=== PATIENT | female | born 1965 | race Two or more races ===

== ENCOUNTER 2018-03-02 02:27 | Emergency (ER) | payer OTHER ==
[~2018-03-02] VITALS: Ht 170.2 cm; Wt 60.8 kg
[2018-03-02] MEDS ORDERED: DiphenhydrAMINE 50mg/ml Inj IVP ONE ×2 (02:30→03:30)
[2018-03-02] MEDS ORDERED: Dicyclomine HCl 10mg/5ml oral soln ORAL ONE ×2 (02:30→03:30)
[2018-03-02] MEDS ORDERED: Lidocaine 2% Visc 15ml soln ORAL ONE ×2 (02:30→03:30)
[2018-03-02] MEDS ORDERED: Mylanta II UD 30ml ORAL ONE ×2 (02:30→03:30)
[2018-03-02] MEDS ORDERED: Metoclopramide 10mg/2ml Inj IVP ONE ×2 (02:30→03:30)
[2018-03-02 02:47] LABS: EOSINOPHILS % (AUTO) 1.1 % (0.0-3.0); HEMATOCRIT 45.1 % (37.0-47.0); HEMOGLOBIN 14.8 G/DL (12.0-16.0); LYMPHOCYTES % (AUTO) 35.2 % (20.0-45.0); MEAN CORPUSCULAR VOLUME 87 FL (80-99); MONOCYTES % (AUTO) 5.8 % (1.0-10.0); PLATELET COUNT 237 K/UL (150-450); WHITE BLOOD COUNT 9.3 K/UL (4.8-10.8)
[2018-03-02 02:57] LABS: ANION GAP 7 mmol/L (5-15); BLOOD UREA NITROGEN 13 mg/dL (7-18); CARBON DIOXIDE 30 MMOL/L (21-32); CHLORIDE 103 MMOL/L (98-107); CREATININE 0.8 MG/DL (0.55-1.30); POTASSIUM 3.8 MMOL/L (3.5-5.1); SODIUM 140 MMOL/L (136-145)
[2018-03-02 03:01] LABS: ALANINE AMINOTRANSFERASE 25 U/L (12-78); ALBUMIN 3.9 G/DL (3.4-5.0); ALBUMIN/GLOBULIN RATIO 1.1 (1.0-2.7); ALKALINE PHOSPHATASE 82 U/L (46-116); ASPARTATE AMINO TRANSFERASE 23 U/L (15-37); BILIRUBIN,TOTAL 0.3 MG/DL (0.2-1.0)
[2018-03-02] MEDS ORDERED: LORazepam Inj 2mg/ml 1ml IV ONE (03:30)
--- NOTE | 2018-03-02 04:11 | Emergency Room Report ---
History of Present Illness General Chief Complaint: Headache Source: Patient, EMS Present Illness HPI 53-year-old female presents ED for evaluation. Brought in by EMS complaining of headache and abdominal pain. Started last night after she took Celexa for the first time. Upon arrival patient states she is feeling warm then tingling all over her body. Son at bedside states patient does have psychiatric history and history of anxiety. Denies nausea or vomiting. Denies chest pain or shortness of breath. Pain is throbbing, 7 out of 10, nonradiating. No other aggravating relieving factors. Denies any other associated symptoms Allergies: Coded Allergies: No Known Allergies (Unverified , 03/02/18) Patient History Past Medical History: psych hx Past Surgical History: none Pertinent Family History: none Social History: Denies: smoking, alcohol use, drug use Last Menstrual Period: none Now: No Immunizations: UTD Reviewed Nursing Documentation: PMH: Agreed; PSxH: Agreed Nursing Documentation-PMH History Of Psychiatric Problem: Yes - Depression, Vertigo Review of Systems All Other Systems: negative except mentioned in HPI Physical Exam Vital Signs Date Time Temp Pulse Resp B/P (MAP) Pulse Ox O2 Delivery O2 Flow Rate FiO2 03/02/18 02:03 97.9 70 18 130/76 98 Room Air 97.9 Sp02 EP Interpretation: reviewed, normal General Appearance: no apparent distress, alert, GCS 15, non-toxic Head: normocephalic, atraumatic Eyes: bilateral eye normal inspection, bilateral eye PERRL ENT: hearing grossly normal, normal pharynx, no angioedema, normal voice Neck: full range of motion, supple, supple/symm/no masses Respiratory: chest non-tender, lungs clear, normal breath sounds, speaking full sentences Cardiovascular #1: regular rate, rhythm, no edema Cardiovascular #2: 2+ carotid (R), 2+ carotid (L), 2+ radial (R), 2+ radial (L) , 2+ dorsalis pedis (R), 2+ dorsalis pedis (L) Gastrointestinal: normal bowel sounds, non tender, soft, non-distended, no guarding, no rebound Rectal: deferred Genitourinary: normal inspection, no CVA tenderness Musculoskeletal: back normal, gait/station normal, normal range of motion, non- tender Neurologic: alert, oriented x3, responsive, motor strength/tone normal, sensory intact, speech normal Psychiatric: judgement/insight normal, memory normal, no suicidal/homicidal ideation, no delusions, anxious Reflexes: 3+ bicep (R), 3+ bicep (L), 3+ tricep (R), 3+ tricep (L), 3+ knee (R) , 3+ knee (L) Skin: normal color, no rash, warm/dry, well hydrated Lymphatic: no adenopathy Medical Decision Making Diagnostic Impression: Primary Impression: Headache Qualified Codes: R51 - Headache Additional Impressions: Adverse reaction to antidepressant drug Qualified Codes: T43.205A - Adverse effect of unspecified antidepressants, initial encounter Anxiety ER Course Hospital Course 53-year-old female presents with headache, abdominal pain, hot flashes after taking Celexa for the first time Differential diagnoses include: migraine, gastritis, anxiety Clinical course Patient placed on stretcher. on monitoring analyst. After initial history and physical I ordered labs, IVFs, meds, ativan labs reviewed- no leukocytosis, hemoglobin/hematocrit stable, troponins negative , electrolytes okay Discussed findings with patient, son at bedside. Son states patient does have history of anxiety. On reassessment patient allowed to rest and is now feeling better. Asking to be discharged. I explained that this could be likely an adverse reaction to the new medication and should discontinue until she sees her PMD Upon reassessment patient is observed feeling better. Interacting appropriately with family, laughing, using her cell phone. Patient states she feels better wishes to go home. Clinical findings consistent with anxiety reaction. Patient and family agree. I. I feel this is a highly complex case requiring extensive working including EKG/Rhythm strip, Xray/CT/US, Blood/urine lab work, repeat exams while in ED, and administration of strong opiates/narcotics for pain control, admission to hospital or close patient follow up. Diagnosis - anxiety, adverse reaction to antidepressant medication, headache Stable and discharged to home. Followup with PMD. Return to ED if symptoms recur or worse Labs Test 03/02/18 02:35 White Blood Count 9.3 K/UL (4.8-10.8) Red Blood Count 5.20 M/UL (4.20-5.40) Hemoglobin 14.8 G/DL (12.0-16.0) Hematocrit 45.1 % (37.0-47.0) Mean Corpuscular Volume 87 FL (80-99) Mean Corpuscular Hemoglobin 28.4 PG (27.0-31.0) Mean Corpuscular Hemoglobin Concent 32.8 G/DL (32.0-36.0) Red Cell Distribution Width 11.0 % (11.6-14.8) Platelet Count 237 K/UL (150-450) Mean Platelet Volume 7.9 FL (6.5-10.1) Neutrophils (%) (Auto) 57.0 % (45.0-75.0) Lymphocytes (%) (Auto) 35.2 % (20.0-45.0) Monocytes (%) (Auto) 5.8 % (1.0-10.0) Eosinophils (%) (Auto) 1.1 % (0.0-3.0) Basophils (%) (Auto) 1.0 % (0.0-2.0) Sodium Level 140 MMOL/L (136-145) Potassium Level 3.8 MMOL/L (3.5-5.1) Chloride Level 103 MMOL/L (98-107) Carbon Dioxide Level 30 MMOL/L (21-32) Anion Gap 7 mmol/L (5-15) Blood Urea Nitrogen 13 mg/dL (7-18) Creatinine 0.8 MG/DL (0.55-1.30) Estimat Glomerular Filtration Rate > 60 mL/min (>60) Glucose Level 125 MG/DL (74-106) Calcium Level 9.0 MG/DL (8.5-10.1) Total Bilirubin 0.3 MG/DL (0.2-1.0) Aspartate Amino Transf (AST/SGOT) 23 U/L (15-37) Alanine Aminotransferase (ALT/SGPT) 25 U/L (12-78) Alkaline Phosphatase 82 U/L (46-116) Total Protein 7.5 G/DL (6.4-8.2) Albumin 3.9 G/DL (3.4-5.0) Globulin 3.6 g/dL Albumin/Globulin Ratio 1.1 (1.0-2.7) Lipase 305 U/L (73-393) Last Vital Signs Date Time Temp Pulse Resp B/P (MAP) Pulse Ox O2 Delivery O2 Flow Rate FiO2 03/02/18 02:03 97.9 70 18 130/76 98 Room Air 97.9 Status: improved Disposition: HOME, SELF-CARE Condition: Stable Referrals: [facility],REFERRING (PCP) Babak Dang MD Mar 02, 2018 04:11
[2018-03-02 05:44] VITALS: BP 130/76
== END 2018-03-02 05:46 | disposition home or self-care (01) ==
LOC: EDBD 02:27 → EMR 02:30
DX: R51 Headache (principal); T43.225A Adverse effect of selective serotonin reuptake inhibitors, initial encounter; Y92.9 Unspecified place or not applicable; F32.9 Major depressive disorder, single episode, unspecified
CPT/HCPCS: 36415; 80053; 83690; 85025; 96361; 96374; 96375; 96376; 99285; J1200; J2765; S0028

== ENCOUNTER 2019-10-07 17:43 | Emergency (ER) | payer OTHER ==
[~2019-10-07] VITALS: Ht 162.6 cm; Wt 748.4 kg
[2019-10-07 18:12] VITALS: BP 120/80
--- NOTE | 2019-10-07 18:12 | NUR ---
ED Nurse Note: s/p fall today afternoon now unable to move right leg . pain on left hip and pelvis. . per patient she [place] in the [place]
--- NOTE | 2019-10-07 18:18 | Emergency Room Report ---
History of Present Illness General Chief Complaint: Multiple Trauma/Fall Source: Patient Present Illness HPI 54-year-old female with no past medical history presents with right hip and lower back pain status post mechanical fall earlier today at 1400. She reports that she slipped on spilled soap at [employer] and fell onto her right side. Denies any head injury, LOC, or vomiting. She is able to ambulate but with pain. She currently rates her pain 6 out of 10 at rest and 9 out of 10 with walking. Patient did not take anything for pain. Allergies: Coded Allergies: CODEINE (Verified Allergy, Unknown, 10/07/19) Patient History Past Medical History: see triage record Now: No Reviewed Nursing Documentation: PMH: Agreed; PSxH: Agreed Nursing Documentation-PMH Past Medical History: No Stated History Review of Systems All Other Systems: negative except mentioned in HPI Physical Exam Vital Signs Date Time Temp Pulse Resp B/P (MAP) Pulse Ox O2 Delivery O2 Flow Rate FiO2 10/07/19 18:01 98.1 72 16 120/80 (93) 98 Room Air Sp02 EP Interpretation: reviewed, normal General Appearance: normal inspection, well appearing, no apparent distress Neck: normal inspection, full range of motion, supple, no bony tend Respiratory: chest non-tender, lungs clear Cardiovascular #1: regular rate, rhythm Cardiovascular #2: 2+ dorsalis pedis (R), 2+ dorsalis pedis (L) Gastrointestinal: normal inspection, non tender Musculoskeletal: normal inspection, normal range of motion, pelvis stable, other - Tenderness to the right hip and right lumbar paraspinal area. No ecchymosis. No obvious deformities. Neurologic: motor strength/tone normal, photographic spotter III-XII nml as tested Medical Decision Making PA Attestation Dr. Reddy is my supervising physician whom patient management and care has been discussed with. Diagnostic Impression: Primary Impression: Hip pain Qualified Codes: M25.551 - Pain in right hip Additional Impressions: Back pain Qualified Codes: M54.5 - Low back pain Fall Qualified Codes: W19.XXXA - Unspecified fall, initial encounter ER Course Pt. presents to the ED c/o right hip and low back pain status post mechanical fall Ddx considered but are not limited to fracture, dislocation, contusion, sprain Vital signs: are WNL, pt. is afebrile H&PE are most consistent with muscle strain, hip contusion ORDERS: Hip/pelvis x-ray and lumbar spine x-ray show no evidence of fracture or dislocation. ED INTERVENTIONS: Patient given ibuprofen and Robaxin for pain. DISCHARGE: At this time pt. is stable for d/c to home. Will provide printed patient care instructions, and any necessary prescriptions. Advised to follow up outpatient in 1-2 days. Care plan and follow up instructions have been discussed with the patient prior to discharge. Other X-Ray Diagnostic Results Other X-Ray Diagnostic Results : X-Ray ordered: Hip/pelvis, lumbar spine # of Views/Limited Vs Complete: 3 View Indication: Pain EP Interpretation: Yes PA Xray: Interpretation reviewed, by supervising MD, and agrees with findings. Interpretation: no dislocation, no soft tissue swelling, no fractures Impression: No acute disease Last Vital Signs Date Time Temp Pulse Resp B/P (MAP) Pulse Ox O2 Delivery O2 Flow Rate FiO2 10/07/19 18:12 72 16 Room Air 10/07/19 18:12 98.1 120/80 98 Disposition: HOME, SELF-CARE Condition: Stable Scripts Cyclobenzaprine Hcl* (FLEXERIL*) 10 Mg Tablet 10 MG ORAL QHS, #10 TAB Prov: Carlee Pritchard N. P.A. 10/07/19 Ibuprofen* (MOTRIN*) 600 Mg Tablet 600 MG ORAL Q6H PRN for For Pain, #30 TAB Prov: Carlee Pritchard N. P.A. 10/07/19 Carlee Pritchard N. P.A. Oct 07, 2019 18:18
--- NOTE | 2019-10-07 18:19 | NUR ---
ED Nurse Note: Pt taken to xray
[2019-10-07] MEDS: HYDROcodone/Acetamin 5/325 tab ORAL ONE ×2 (18:48→18:56)
--- NOTE | 2019-10-07 18:52 | NUR ---
ED Nurse Note: pt states shes allergic to codeine. updated pt allergy list. wasted medication appropriately
[2019-10-07] MEDS ORDERED: IBUPROFEN600 MG ORAL (19:14)
[2019-10-07] MEDS ORDERED: CYCLOBENZAPRINE10 MG ORAL (19:14)
[2019-10-07] MEDS ORDERED: Methocarbamol 750mg tab ORAL ONE (19:15)
[2019-10-07 19:20] VITALS: BP 121/79
--- NOTE | 2019-10-07 19:21 | NUR ---
ER DISCHARGE NOTE: Patient is cleared to be discharged per ERMD, pt is aox4, on room air, with stable vital signs. pt was given dc and prescription instructions, pt was able to verbalize understanding, pt id bandremoved. pt is able to ambulate with steady gait. pt took all belongings.
--- NOTE | 2019-10-08 11:02 | Diagnostic Imaging Report ---
Indication: Trauma, back pain Technique: 3 views of the lumbar spine Comparison: None Findings: Bony alignment is normal. Vertebral body heights are preserved. Disc spaces are preserved. Pedicles are intact. Sacral arches are preserved. Sacral iliac joint spaces are preserved. There is considerable stool within the colon. Impression: No acute process
--- NOTE | 2019-10-08 11:03 | Diagnostic Imaging Report ---
Indication: Trauma, pain Technique: 2 views of the right hip, one view of the pelvis Comparison: none Findings: No acute fractures. No dislocations. The joint spaces are preserved Impression: Negative
== END 2019-10-07 19:20 | disposition home or self-care (01) ==
LOC: EMR 18:35
DX: M25.551 Pain in right hip (principal); M54.5 Low back pain; Z88.6 Allergy status to analgesic agent; W01.0XXA Fall on same level from slipping, tripping and stumbling without subsequent striking against object, initial encounter; Y92.9 Unspecified place or not applicable
CPT/HCPCS: 72020; 73501; Z7502; 99284

== ENCOUNTER 2020-06-22 17:47 | Emergency (ER) | payer OTHER ==
[~2020-06-22] VITALS: Ht 167.6 cm; Wt 64.4 kg
[~2020-06-22 17:47] MED LIST: CYCLOBENZAPRINE10 MG ORAL; IBUPROFEN600 MG ORAL
--- NOTE | 2020-06-22 18:13 | Emergency Room Report ---
History of Present Illness General Chief Complaint: Dizziness Source: Patient Present Illness HPI Patient is a 55-year-old female presents for increased generalized body pain and right-sided weakness. Onset of weakness was approximately 5 hours prior to being seen. Patient had been feeling generalized body aches for several days. Had not been having any fever. Reports having multiple episodes of spinning sensation. Increased generalized weakness and lethargy. Allergies: Coded Allergies: CODEINE (Verified Allergy, Unknown, 10/07/19) COVID-19 Screening Contact w/high risk pt: No Experienced COVID-19 symptoms?: Yes COVID-19 Testing performed HEALTH INSPECTOR: No Patient History Past Medical History: see triage record Now: No Reviewed Nursing Documentation: PMH: Agreed; PSxH: Agreed Nursing Documentation-PMH Past Medical History: No History, Except For Review of Systems All Other Systems: negative except mentioned in HPI Physical Exam Vital Signs Date Time Temp Pulse Resp B/P (MAP) Pulse Ox O2 Delivery O2 Flow Rate FiO2 06/22/20 17:58 99.0 68 16 115/69 (84) 95 Room Air Sp02 EP Interpretation: reviewed, normal General Appearance: normal inspection, alert, GCS 15, moderate distress Head: atraumatic ENT: normal ENT inspection, hearing grossly normal, normal voice Neck: normal inspection, full range of motion, supple, no bony tend Respiratory: normal inspection, lungs clear, normal breath sounds, no respiratory distress, no retraction, no wheezing Cardiovascular #1: regular rate, rhythm, no edema Gastrointestinal: normal inspection, normal bowel sounds, non tender, soft, no guarding, no hernia Genitourinary: no CVA tenderness Musculoskeletal: normal inspection, back normal, normal range of motion Neurologic: alert, oriented x3, motor weakness, responsive, speech normal, normal inspection Psychiatric: normal inspection, judgement/insight normal, mood/affect normal Skin: no rash Medical Decision Making Diagnostic Impression: Primary Impression: Transient ischemic attack ER Course Patient presented for increased dizziness. Differential diagnosis CVA, arthritis, radiculopathy, among others. Because of complexity of patient's case laboratory tests and imaging studies were ordered. CT was performed emergently because patient's reported weakness and dizziness. CT read by radiology showed no evidence of acute CVA. Laboratory testing was unremarkable. Patient was given IV fluids as well as medications for pain. She is given aspirin. Patient was noted to have complete resolution of all weakness and did not have any facial drooping with normal neurologic exam. Patient was offered admission and stated she did not want to stay in the hospital. She states she felt better after meclizine. She was given prescription for aspirin and meclizine. She was advised to recheck with her doctor tomorrow. She is advised to return if worse. This medical record is generated with [employer] manager of manufacturing software. There may be some manager of manufacturing discrepancies related to use of this software Labs Test 06/22/20 18:30 06/22/20 18:54 White Blood Count 8.8 K/UL (4.8-10.8) Red Blood Count 4.96 M/UL (4.20-5.40) Hemoglobin 14.8 G/DL (12.0-16.0) Hematocrit 44.9 % (37.0-47.0) Mean Corpuscular Volume 90 FL (80-99) Mean Corpuscular Hemoglobin 29.8 PG (27.0-31.0) Mean Corpuscular Hemoglobin Concent 33.0 G/DL (32.0-36.0) Red Cell Distribution Width 12.3 % (11.6-14.8) Platelet Count 270 K/UL (150-450) Mean Platelet Volume 7.6 FL (6.5-10.1) Neutrophils (%) (Auto) 58.0 % (45.0-75.0) Lymphocytes (%) (Auto) 30.2 % (20.0-45.0) Monocytes (%) (Auto) 7.3 % (1.0-10.0) Eosinophils (%) (Auto) 3.1 % (0.0-3.0) Basophils (%) (Auto) 1.4 % (0.0-2.0) Prothrombin Time 10.1 SEC (9.30-11.50) Prothromb Time International Ratio 0.9 (0.9-1.1) Activated Partial Thromboplast Time 26 SEC (23-33) Sodium Level 137 MMOL/L (136-145) Potassium Level 4.1 MMOL/L (3.5-5.1) Chloride Level 100 MMOL/L (98-107) Carbon Dioxide Level 32 MMOL/L (21-32) Anion Gap 5 mmol/L (5-15) Blood Urea Nitrogen 21 mg/dL (7-18) Creatinine 0.9 MG/DL (0.55-1.30) Estimat Glomerular Filtration Rate > 60 mL/min (>60) Glucose Level 100 MG/DL (74-106) Calcium Level 9.4 MG/DL (8.5-10.1) Total Bilirubin 0.2 MG/DL (0.2-1.0) Aspartate Amino Transf (AST/SGOT) 26 U/L (15-37) Alanine Aminotransferase (ALT/SGPT) 24 U/L (12-78) Alkaline Phosphatase 75 U/L (46-116) Troponin I 0.000 ng/mL (0.000-0.056) Total Protein 8.1 G/DL (6.4-8.2) Albumin 3.9 G/DL (3.4-5.0) Globulin 4.2 g/dL Albumin/Globulin Ratio 0.9 (1.0-2.7) Triglycerides Level 151 MG/DL (30-150) Cholesterol Level 218 MG/DL (< 200) LDL Cholesterol 123 mg/dL (<100) HDL Cholesterol 55 MG/DL (40-60) Cholesterol/HDL Ratio 4.0 (3.3-4.4) Lipase 205 U/L (73-393) POC Whole Blood Glucose 94 MG/DL (74-106) Last Vital Signs Date Time Temp Pulse Resp B/P (MAP) Pulse Ox O2 Delivery O2 Flow Rate FiO2 06/22/20 17:58 99.0 68 16 115/69 (84) 95 Room Air Status: improved Disposition: HOME, SELF-CARE Condition: Improved Scripts Aspirin* (ASPIRIN*) 325 Mg Tablet 325 MG ORAL DAILY for Antiplatelet, #30 TAB Prov: Alex May MD 06/22/20 Meclizine Hcl* (MECLIZINE*) 25 Mg Tablet 25 MG ORAL THREE TIMES A DAY, #30 TAB Prov: Alex May MD 06/22/20 Alex May MD Jun 22, 2020 18:13
--- NOTE | 2020-06-22 18:35 | NUR ---
ED Nurse Note: Pt came back from CT, placed on bed 8. hooked to cardiac cath technologist.
--- NOTE | 2020-06-22 18:37 | NUR ---
ED Nurse Note: Pt wheeled in to ED from home d/t dizziness, unable to ambulate for a week, weakness and pain on L shoulder. Pt is AOx4, calm and cooperative to care. Per pt, weakness started today around 1400 and she passed out; verbalized hx of TIAs as well. Pt was on bed, hooked to artillery specialist, breathing even and unlabored, afebrile on triage. (-) facial drooping nor slurred speech. will continue to monitor. Addendum: 06/22/20 at 1908 by NORMA ED Nurse Note: Pt wheeled in to ED from home d/t dizziness, unable to ambulate for a week, weakness and pain on R shoulder. Pt is AOx4, calm and cooperative to care. Per pt, weakness started today around 1400 and she passed out; verbalized hx of TIAs as well. Pt was on bed, hooked to artillery specialist, breathing even and unlabored, afebrile on triage. (-) facial drooping nor slurred speech. will continue to monitor.
--- NOTE | 2020-06-22 18:39 | Diagnostic Imaging Report ---
History: CVA Exam: CT HEAD Without Contrast Technique more: CTDI is 53.4 mGy and DLP is 992.1 mGy-cm. Technique more: One or more of the following dose reduction techniques were used: automated exposure control, adjustment of the mA and/or kV according to patient size, use of iterative reconstruction technique. Comparison: None available FINDINGS: No intracranial hemorrhage, mass effect or CT evidence of acute infarct. Ventricles are within limits and midline. Visualized paranasal sinuses, mastoids and orbits appear within limits. IMPRESSION: No intracranial hemorrhage, mass effect or CT evidence of acute infarct. May further evaluate with nonemergent MRI as warranted.
[2020-06-22 18:45] VITALS: BP 115/69
[2020-06-22] MEDS ORDERED: Ketorolac 30mg Inj IV ONE (18:45)
[2020-06-22 18:55] LABS: BASOPHILS % (AUTO) 1.4 % (0.0-2.0); EOSINOPHILS % (AUTO) 3.1 % (0.0-3.0); HEMATOCRIT 44.9 % (37.0-47.0); HEMOGLOBIN 14.8 G/DL (12.0-16.0); LYMPHOCYTES % (AUTO) 30.2 % (20.0-45.0); MEAN CORPUSCULAR VOLUME 90 FL (80-99); MONOCYTES % (AUTO) 7.3 % (1.0-10.0); PLATELET COUNT 270 K/UL (150-450); RED BLOOD COUNT 4.96 M/UL (4.20-5.40); RED CELL DISTRIBUTION WIDTH 12.3 % (11.6-14.8); WHITE BLOOD COUNT 8.8 K/UL (4.8-10.8)
[2020-06-22 19:07] LABS: INR 0.9 (0.9-1.1)
[2020-06-22 19:08] LABS: ANION GAP 5 mmol/L (5-15); BLOOD UREA NITROGEN 21 mg/dL (7-18); CALCIUM 9.4 MG/DL (8.5-10.1); CARBON DIOXIDE 32 MMOL/L (21-32); CHLORIDE 100 MMOL/L (98-107); CREATININE 0.9 MG/DL (0.55-1.30); POTASSIUM 4.1 MMOL/L (3.5-5.1); SODIUM 137 MMOL/L (136-145)
--- NOTE | 2020-06-22 19:11 | NUR ---
ED Nurse Note: Hand off given to GIN Sharma.
[2020-06-22 19:12] LABS: ALANINE AMINOTRANSFERASE 24 U/L (12-78); ALBUMIN 3.9 G/DL (3.4-5.0); ALBUMIN/GLOBULIN RATIO 0.9 (1.0-2.7); ALKALINE PHOSPHATASE 75 U/L (46-116); ASPARTATE AMINO TRANSFERASE 26 U/L (15-37); BILIRUBIN,TOTAL 0.2 MG/DL (0.2-1.0); CHOLESTEROL 218 MG/DL (< 200); HDL CHOLESTEROL 55 MG/DL (40-60); TRIGLYCERIDES 151 MG/DL (30-150)
[2020-06-22 20:40] VITALS: BP 118/64
--- NOTE | 2020-06-22 20:40 | NUR ---
ED Nurse Note: Assumed care of patient from GIN Sharma. Patient is resting in bed. Vital signs are stable, she is awake and alert. Patient had complained of feeling dizzy; ERMD was made aware. Patient given meclizine PO; tolerated well.
[2020-06-22] MEDS ORDERED: Meclizine 25mg tab ORAL ONE (20:45)
[2020-06-22] MEDS ORDERED: ASPIRIN325 MG ORAL (20:59)
[2020-06-22] MEDS ORDERED: MECLIZINE HCL25 MG ORAL (20:59)
--- NOTE | 2020-06-22 21:10 | NUR ---
ED Nurse Note: JORDEN May witnessed patient ambulate with steady gait and spoke with patient regarding DC plan.
[2020-06-22 21:15] VITALS: BP 100/53
--- NOTE | 2020-06-22 21:15 | NUR ---
ER DISCHARGE NOTE: Patient is cleared to be discharged per ERMD, pt is aox4, on room air, with stable vital signs. pt was given dc instructions, pt was able to verbalize understanding, pt id band and iv site removed without complications. pt is able to ambulate with steady gait. pt took all belongings and assisted into patient's daughter car.
--- NOTE | 2020-06-23 15:19 | Diagnostic Imaging Report ---
Indication: Shortness of breath Technique: One view of the chest Comparison: none Findings: Lungs and pleural spaces are clear. Heart size is normal. Impression: No acute process
== END 2020-06-22 21:15 | disposition home or self-care (01) ==
LOC: EMR 18:15
DX: G45.9 Transient cerebral ischemic attack, unspecified (principal); Z88.6 Allergy status to analgesic agent
CPT/HCPCS: 36415; 70450; 71045; 80053; 80061; 82962; 83690; 84484; 85025; 85610; 85730; 93005; 96361; 96374; J1885; J7030; Z7502; 99284